=== PATIENT | female | born 1970 | race Caucasian/White ===

== ENCOUNTER 2016-05-29 12:33 | Emergency (ER) | payer MEDICARE ==
[2016-01-02 07:18] VITALS: BMI 45.4
[~2016-05-29 12:33] MED LIST: ALLOPURINOL TAB 300; BACTRIM DS TABL1 TAB PO; BUPROPION HCL100 M1 PO; CARTIA XT240 MG PO; GLUCOPHAGE1000 MG PO; HYDROCODONE-APA1 TAB PO; KLONOPIN1 MG PO; KLOR-CON M2020 MEQ PO; LASIX80 MG PO; LEVEMIR; NOVOLOG; PHENERGAN25 M1; ULTRAM50 MG PO; ZYLOPRIM300 MG PO
[2016-05-29 13:35] LABS: BASOPHILS 0.2 % (0.0-2.0); HEMATOCRIT 32.2 % (36.0-48.0); HEMOGLOBIN 10.2 g/dL (12-16); IMMATURE GRANULOCYTES 0.6 % (0-5); LYMPHOCYTES 22.2 % (15-50); MCH 34.6 pg (26.0-34.0); MCHC 31.7 g/dL (31.0-37.0); MCV 109.2 fL (80.0-100.0); MEAN PLATELET VOLUME 8.4 fL (7.4-10.4); MONOCYTES 4.8 % (2-11); NEUTROPHILS 70.2 % (40-80); RBC 2.95 10x6/uL (4.00-5.40); RDW 18.1 % (11.5-14.5); WBC 14.1 10x3/uL (4.8-10.8)
[2016-05-29 13:41] LABS: PLATELET COUNT 192 10x3/uL (130-400)
[2016-05-29 13:50] LABS: APTT 26.9 SECONDS (22.8-39.4); INR 0.98 (0.85-1.17); PROTIME 12.8 SECONDS (11.6-15.0)
[2016-05-29 13:56] LABS: ALBUMIN 3.9 g/dL (3.4-5.0); ANION GAP 13.6 mmol/L (8-16); BILIRUBIN - TOTAL 0.53 mg/dL (0.2-1.3); CARBON DIOXIDE 30.4 mmol/L (21.0-32.0); CREATININE - SERUM 5.1 mg/dL (0.6-1.3); PROTEIN - SERUM 7.8 g/dL (6.4-8.2)
== END 2016-05-29 16:02 | disposition home or self-care (01) ==
LOC: D.ER 12:33
PROVIDERS: Emergency Medicine
DX: K62.5 Hemorrhage of anus and rectum (principal); J44.9 Chronic obstructive pulmonary disease, unspecified; E11.9 Type 2 diabetes mellitus without complications; Z79.4 Long term (current) use of insulin; N18.9 Chronic kidney disease, unspecified; D64.9 Anemia, unspecified; E87.6 Hypokalemia

== ENCOUNTER 2016-06-01 21:22 | Inpatient (IN) | payer MEDICARE ==
[~2016-06-01] VITALS: Ht 167.6 cm; Wt 123.7 kg
--- NOTE | 2016-06-01 23:37 | NUR ---
PT ARRIVED VIA EMS AWAKE, ALERT, ORIENTED, TACHYPNEIC, DYSPNEIC, HAS C-PAP FROM HOME WITH HER AND IS WEARING IT AT THIS TIME. PT DENIES ANY ACUTE NEEDS AT THIS TIME. SPOKE WITH LOW VARGAS LITIGATION SERVICES MANAGER FOR RENAL. SHE ORDERED CMP, CBC, U/A, CARDIAC ENZYMES R/T INCREASED TROP FROM [facility] TO [facility], AND BLOOD CXL X 2. PT DID RECEIVE 1 GM OF ROCEPHIN FROM [facility] IN [place] BEFORE BEING TRANSFERRED TO HERE, AND ALSO ZOFRAN FOR INTERMITTENT NAUSEA. WILL RESTART PT'S S/S, PLACE TELEMETRY, AND MONITOR CLOSELY.
[2016-06-01] MEDS ORDERED: AMBIEN5 MG PO (23:54)
[2016-06-01] MEDS ORDERED: RENVELA800 MG PO (23:55)
[2016-06-02 00:58] LABS: CKMB 0.3 U/L (0.0-3.6); CREATINE KINASE 32 UL (21-215)
[2016-06-02 01:05] LABS: TROPONIN-I 0.084 ng/mL (0.000-0.060)
[2016-06-02 01:19] VITALS: BP 119/64; BMI 46.2
--- NOTE | 2016-06-02 01:34 | NUR ---
PT REFUSES SCD'S
--- NOTE | 2016-06-02 03:54 | NUR ---
ECG COMPLETE AND IN FRONT OF CHART
[2016-06-02 04:00] VITALS: BP 125/86; BP 99/45
--- NOTE | 2016-06-02 04:16 | NUR ---
PT C/O INCREASED CP, CHEST PRESSURE, STILL DYSPNEIC AND TACHYPNEIC. I SPOKE WITH LOW VARGAS WEED CONTROL INSPECTOR FOR RENAL WHO ORDERED UPDRAFTS Q 4 HOURS PRN, MORPHINE 2MG IVP Q 2 HOURS PRN CHEST PAIN, NITRO 0.4 SL X 3 OVER 15 MINUITES, AND RESTARTED PTS NORCO 10/325 Q 4 HOURS PRN PAIN. NITRO 0.4MG SL ADMINISTERED X 1, BUT BEFORE TAKING, PT STATES THEY HAVE NEVER HELPED HER AND THAT SHE HAD TO TAKE TWO OF THEM DURING DIALYSIS YESTERDAY. MORPHINE ADMINISTERED ORDERED, AND PT STATES THE CHEST PAIN IS EASING UP MINIMALLY. PT HAS REFUSED ANOTHER DOSE OF NITRO. WILL CONTINUE TO MONITOR CLOSELY.
--- NOTE | 2016-06-02 06:43 | NUR ---
PT LYING IN BED, EYES CLOSED, C-PAP ON, EASILY ROUSABLE TO VERBAL STIMULI. PT STILL IN GREAT DISCOMFORT WITH CHEST PAIN. DR. RUBIO IN ROOM WITH HER NOW. CONTINUE TO MONITOR.
[2016-06-02 07:10] LABS: ALKALINE PHOSPHATASE 59 U/L (46-116); ALT (SGPT) 15 U/L (10-68); CALCIUM 9.2 mg/dL (8.5-10.1); CARBON DIOXIDE 25.8 mmol/L (21.0-32.0); CHLORIDE - SERUM 94 mmol/L (98-107); CREATINE KINASE 29 UL (21-215); CREATININE - SERUM 5.4 mg/dL (0.6-1.3); POTASSIUM - SERUM 3.8 mmol/L (3.5-5.1); PROTEIN - SERUM 7.3 g/dL (6.4-8.2); SODIUM 134 mmol/L (136-145); UREA NITROGEN 33 mg/dL (7-18); eGFR NON AFRICAN AMERICAN 9 mL/min (90-120)
[2016-06-02 07:15] LABS: CALC OSMOLALITY 279 mosm/kg (275-300); GLUCOSE 192 mg/dL (74-106); HEMOGLOBIN 9.1 g/dL (12-16); MCH 34.1 pg (26.0-34.0); MCHC 31.4 g/dL (31.0-37.0); MCV 108.6 fL (80.0-100.0); MEAN PLATELET VOLUME 9.1 fL (7.4-10.4); PLATELET COUNT 200 10x3/uL (130-400); RBC 2.67 10x6/uL (4.00-5.40); RDW 17.8 % (11.5-14.5); TROPONIN-I 0.091 ng/mL (0.000-0.060); WBC 35.1 10x3/uL (4.8-10.8)
[2016-06-02 07:48] VITALS: BP 117/65
[2016-06-02 08:29] LABS: LYMPHOCYTES 6 % (15-50); MONOCYTES 5 % (2-11); NEUTROPHILS 82 % (40-80)
[2016-06-02 08:30] LABS: PLATELET ESTIMATE NORMAL
[2016-06-02 11:35] VITALS: BP 118/58
--- NOTE | 2016-06-02 13:08 | NUR ---
INTRODUCED SELF TO PT, PAIN MEDICATION GIVEN, PT STATES PAIN AT A 8, LOCATED IN CHEST, PT TOLERATED WELL, WILL CONTINUE TO MONITOR, CALL LIGHT WITHIN REACH.
[2016-06-02 13:25] VITALS: Ht 167.6 cm; Wt 123.7 kg
[2016-06-02 13:54] LABS: CKMB 0.3 U/L (0.0-3.6); CREATINE KINASE 20 UL (21-215); TROPONIN-I 0.055 ng/mL (0.000-0.060)
--- NOTE | 2016-06-02 14:14 | NUR ---
PT RESTING QUIETLY, RESPIRATIONS EVEN, BED IN LOW POSITION, SIDE RAILS UP X'S 2, CALL LIGHT WITHIN REACH, WILL CONTINUE TO MONITOR.
--- NOTE | 2016-06-02 15:00 | NUR ---
PT STATES DOES NOT ANY PHONE CALLS TO ROOM, CALLED LAND INSPECTOR, WILL CONTINUE TO MONITOR. CALL LIGHT WITHIN REACH.
--- NOTE | 2016-06-02 15:05 | NUR ---
ASSISTED PT TO BATHROOM AND BACK TO BED WITH MINIMAL ASSISTANCE, PT COMPLAINED OF PAIN IN HER FEET AND CHEST AREA. WILL CONTINUE TO MONITOR, CALL LIGHT WITHIN REACH.
[2016-06-02 16:14] VITALS: BP 101/51
--- NOTE | 2016-06-02 16:41 | NUR ---
Patient Name: KATINA BHAKTA Admission Status: Elective Accout number: [id number] Admission Date: 06-01-2016 : 1970 Admission Diagnosis:CHEST PAIN, UNSPECIFIED Attending: SALEEM Current LOS: 1 Anticipated DC Date: Planned Disposition: Home Primary Insurance: MEDICARE A & B Discharge Planning Comments: * Is the patient Alert and Oriented? Yes 0 * How many steps to enter\exit or inside your home? NONE 0 * PCP RAJINDER CHAMPION 0 * Pharmacy [facility] 0 * Preadmission Environment Home Alone 0 * ADLs Independent 0 * Equipment BIPAP Glucometer Oxygen 0 * Other Equipment HOME AND PORTABLE OXYGEN [facility] - MEDICAL EQUIPMENT PROVIDER PREFERENCE 0 * List name and contact numbers for known caregivers / representatives who currently or will assist patient after discharge: JOHNNY BHAKTA, DAUGHTER, JOYCE COCHRAN, MOTHER, 0 * Community resources currently utilized Other 0 * Please name any agencies selected above. OUTPATIENT DIALYSIS, [facility] T/T/SA, 1200 NOON, MOTHER DRIVES TO AND FROM DIALYSIS 0 * Additional services required to return to the preadmission environment? No 0 * Can the patient safely return to the preadmission environment? Yes 0 * Has this patient been hospitalized within the prior 30 days at any hospital? No 0 CM MET WITH PT IN ROOM TO DISCUSS DISCHARGE PLANNING AND NEEDS. PT REPORTS LIVING AT HOME INDEPENDENTLY AND ALONE. PT MOVED TO AN APARTMENT WITH NO STEPS. PT HAS BIPBP, GLUCOMETER, OXYGEN (HOME AND PORTABLE), PROVIDER IS [facility]. PT HAS NO OUTSIDE SERVICES ASSISTING IN THE HOME. CM DISCUSSED AVAILABILITY OF HOME HEALTH, REHAB SERVICES AND MEDICAL EQUIPMENT. PT HAD HOME HEALTH AFTER LAST DISCHARGE AND REPORTS NOT NEEDING IT NOW.PT DENIES DISCHARGE NEEDS, REPORTS HER FAMILY WILL PICK HER UP FOR DISCHARGE HOME. PT PLANS TO DISCHARGE HOME INDEPENDENTLY AND ALONE, DENIES DISCHARGE NEEDS AT THIS TIME. CM TO FOLLOW AND ASSIST NEEDED. Cook Manager: Quagn Son
--- NOTE | 2016-06-02 16:44 | NUR ---
ASSISTED PT TO BATHROOM AND BACK TO BED WITH MINIMAL ASSISTANCE. PT COMPLAINED OF PAIN IN FEET AND CHEST, PT STATES WANTS TO WAIT FOR PAIN MEDICATION UNTIL AFTER SHE EATS, WILL CONTINUE TO MONITOR, CALL LIGHT WITHIN REACH.
--- NOTE | 2016-06-02 18:07 | NUR ---
PAIN MEDICATION GIVEN, PT STATES PAIN AT 9 IN CHEST AND FEET, WILL CONTINUE TO MONITOR, CALL LIGHT WITHIN REACH.
[2016-06-03] VITALS: BP 124/67
--- NOTE | 2016-06-03 04:20 | NUR ---
NURSE ROUNDS 19:45 - PT LYING IN BED, AWAKE, ALERT, ORIENTED, STATES SHE IS STILL HAVING CONTINUOUS CHEST PAIN, HOME C-PAP ON. DENIES ANY ACUTE NEEDS. CONTINUE TO MONITOR CLOSELY.
[2016-06-03 05:25] LABS: BASOPHILS 0.1 % (0.0-2.0); EOSINOPHILS 0.1 % (0-7); HEMATOCRIT 25.7 % (36.0-48.0); HEMOGLOBIN 8.3 g/dL (12-16); IMMATURE GRANULOCYTES 0.7 % (0-5); LYMPHOCYTES 6.2 % (15-50); MCH 34.6 pg (26.0-34.0); MCHC 32.3 g/dL (31.0-37.0); MCV 107.1 fL (80.0-100.0); MEAN PLATELET VOLUME 9.1 fL (7.4-10.4); MONOCYTES 5.1 % (2-11); NEUTROPHILS 87.8 % (40-80); PLATELET COUNT 155 10x3/uL (130-400); RDW 17.5 % (11.5-14.5); WBC 29.4 10x3/uL (4.8-10.8)
[2016-06-03 05:41] LABS: ANION GAP 19.4 mmol/L (8-16); CALCIUM 8.6 mg/dL (8.5-10.1); CARBON DIOXIDE 24.6 mmol/L (21.0-32.0); PHOSPHOROUS 6.2 mg/dL (2.5-4.9)
[2016-06-03 05:49] LABS: CREATININE - SERUM 7.1 mg/dL (0.6-1.3)
--- NOTE | 2016-06-03 06:32 | NUR ---
PT AWAKE, ALERT, ORIENTED, RECEIVING RESP UPDRAFT VIA C-PAP AT THIS TIME. DENIES ANY NEEDS. CONTINUE TO MONITOR CLOSELY.
--- NOTE | 2016-06-03 07:30 | NUR ---
0700-WATCHING TV WITH HOME BIPAP ON. DENIES NEEDS AT PRESENT TIME DURING AM ROUNDS. RIGHT HAND SEEN WITH SECONDARY MEDICINE INFUSING. LEFT AVF SEEN WITH + BRUIT AND THRILL. ON HEART MONITOR SHOWING SR, HR 100. TO RECEIVCE 1 UNIT OF BLOOD TODAY WITH DIALYSIS. WILL CONTINUE TO MONITOR.
[2016-06-03 08:10] VITALS: BP 124/68
--- NOTE | 2016-06-03 10:21 | NUR ---
URINE SENT TO LAB ORDERED. THERE IS SOME BLOOD SEEN TO IT BUT PATIENT IS ON MENSES. PATIENT REFUSED TO HAVE HER RIGHT FOOT DRESSING LOOKED AT PER WOUND CARE NURSE UNTIL SHE TOOK SHOWER, SHE IS IN NO HURRY FOR THAT AT PRESENT TIME. WILL CONTINUE TO MONITOR. BIPAP STILL IN USE.
--- NOTE | 2016-06-03 11:36 | NUR ---
PATIENT PATHWAYS - PRN notified of patiens admission on 06/02. Patient is from [facility] on a TTS @ 10:15am schedule. Medial records uploaded nd forwarded to the patient's home unit for their records. DAY PRL
[2016-06-03 11:50] VITALS: BP 115/95
[2016-06-03 11:58] LABS: APPEARANCE CLOUDY (CLEAR); BACTERIA FEW /hpf (NONE SEEN); BILIRUBIN NEGATIVE (NEGATIVE); COLOR RED (YELLOW); EPITHELIAL CELLS 0-5 /hpf (0-5); GLUCOSE NEGATIVE (NEGATIVE); KETONE NEGATIVE (NEGATIVE); LEUKOCYTE ESTERASE 2+ (NEGATIVE); NITRITE NEGATIVE (NEGATIVE); PROTEIN 1+ mg/dL (NEGATIVE); RED CELLS - URINE >50 /hpf (0-5); SPECIFIC GRAVITY 1.015 (1.005-1.020); UROBILINOGEN NORMAL (NORMAL)
--- NOTE | 2016-06-03 14:37 | NUR ---
WOUND CARE CONSULT: PT REFUSED TO ALLOW WOUND CARE TO LOOK AT HER FEET / ASSESS WOUNDS. WILL CONTINUE FOLLOWING.
--- NOTE | 2016-06-03 14:48 | NUR ---
PATIENT IS ASKED AGAIN PER RIKI (PCT) WITH THE MOTHER IN THE ROOM, WHEN SHE WILL TAKE A SHOWER OR WASH UP SO THAT DRESSING ON RIGHT FOOT CANGE BE CHANGED. SHE REPLIED "WHEN MY MOM LEAVES".
--- NOTE | 2016-06-03 15:29 | NUR ---
PATIENT IS NOW IN SHOWER.
--- NOTE | 2016-06-03 16:29 | NUR ---
SARTHAK WITH WOUND CARE HERE TO SEE BILATERAL FEET. BOTH FEET ARE MOTTLED AND WOUND IS ADDRESSED PER SARTHAK.
--- NOTE | 2016-06-03 16:32 | NUR ---
WOUND CARE CONSULT: THIS IS A PATIENT OF DR. STRINGER AT THE [facility] WOUND [facility]INIC. SHE GOES WEEKLY. THERE IS A CHRONIC WOUND ON THE RIGHT MEDIAL FOOT MEASURING 2.5CM X 4CM (REFUSED TO ALLOW DEPTH TO BE CHECKED). SKIN SURROUNDING THE WOUND IS HARD TO THE TOUCH, CALLOUSED AND PEELING. BILATERAL FEET ARE MISSHAPED WITH CALLOUSES. CURRENT TREATMENT SHE IS RECEIVING IS SANTYL OINTMENT APPLIED TO WOUND BED, COVER WITH ADAPTIC, 4X4S, WRAPPING WITH CAST PADDING AND KERLIX. IT IS A DAILY DRESSING CHANGE OF WHICH SHE DOES FOR HERSELF. RECOMMEND CONTINUING THIS TREATMENT. WOUND CARE WILL CONTINUE TO MONITOR.
--- NOTE | 2016-06-03 18:24 | NUR ---
DIALYSIS HERE AT BEDSIDE.
--- NOTE | 2016-06-03 21:25 | NUR ---
CURRENTLY DIALYSIS AT BEDSIDE. WEARING BIPAP.
[2016-06-04] VITALS: BP 114/62
--- NOTE | 2016-06-04 02:09 | NUR ---
LYING IN BED WITH EYES CLOSED, CALL LIGHT IN REACH. WILL CONTINUE WITH PLAN OF CARE.
[2016-06-04 04:00] VITALS: BP 116/63
[2016-06-04 05:23] LABS: BASOPHILS 0.1 % (0.0-2.0); EOSINOPHILS 0.2 % (0-7); HEMOGLOBIN 8.5 g/dL (12-16); IMMATURE GRANULOCYTES 0.4 % (0-5); LYMPHOCYTES 7.4 % (15-50); MCH 33.2 pg (26.0-34.0); MCHC 31.5 g/dL (31.0-37.0); MCV 105.5 fL (80.0-100.0); MEAN PLATELET VOLUME 9.5 fL (7.4-10.4); MONOCYTES 7.8 % (2-11); NEUTROPHILS 84.1 % (40-80); PLATELET COUNT 146 10x3/uL (130-400); RBC 2.56 10x6/uL (4.00-5.40); RDW 18.6 % (11.5-14.5)
[2016-06-04 05:34] LABS: WBC 17.2 10x3/uL (4.8-10.8)
[2016-06-04 05:51] LABS: ANION GAP 15.8 mmol/L (8-16); CALCIUM 8.7 mg/dL (8.5-10.1); CARBON DIOXIDE 30.6 mmol/L (21.0-32.0); CREATININE - SERUM 5.1 mg/dL (0.6-1.3); PHOSPHOROUS 5.4 mg/dL (2.5-4.9); POTASSIUM - SERUM 3.4 mmol/L (3.5-5.1)
--- NOTE | 2016-06-04 07:52 | NUR ---
AM ROUNDING MADE, PATIENT IS ON BIPAP FROM HOME. ON HEART MONITOR SHOWING SR, HR 100. NS INFUSING AT 10 CC/HR TO RIGHT HAND. DRESSING TO RIGHT FOOT IS CLEAN AND DRY, WILL CHANGE TODAY, 3-4+ EDEMA. LEFT KNOT STILL TO INNER LEFT FOOT. LEFT AVF WITH + BRUIT AND THRILL. WILL CONTINUE TO MONITOR.
[2016-06-04 08:06] VITALS: BP 89/48
[2016-06-04 12:00] VITALS: BP 119/65
--- NOTE | 2016-06-04 12:38 | NUR ---
IV SITE TO RIGHT HAND CHANGED THERE WAS SOME BLOOD ON IT. TOLERATED WELL.
--- NOTE | 2016-06-04 13:18 | NUR ---
Nutrition Follow Up: Pt was asleep at the time of RD visit. Interview deferred at this time. Chart reviewed. Pt is eating 29% meal avg on a Renal ADA diet. Noted pt with wounds to feet. Labs noted - K+ low, Glucose/Phos elevated. Meds noted including Levemir, Humalog. Pt with poor po intake at this time. Will continue to provide selective menus and honor food preferences within diet ordered. RD following.
--- NOTE | 2016-06-04 14:14 | NUR ---
PATIENT ASSISTED TO RESTROOM PER TECH, COMPLATINTS OF IV LEAKING. WILL ATTEMPT RESITING.
--- NOTE | 2016-06-04 14:43 | NUR ---
IV RE-SITED TO RIGHT FA WITH 22 G.
--- NOTE | 2016-06-04 15:32 | NUR ---
PATIENT IS READY TO HAVE DRESSING TO RIGHT FOOT CHANGED. STUDENT NURSE AND INSTRUCTOR THERE TO DO IT.
[2016-06-04 16:00] VITALS: BP 109/52
--- NOTE | 2016-06-04 20:03 | NUR ---
PT RESTING IN BED WATCHING TV. ALERT ORIENTED CONVERSANT. DENIES NEEDS. NO ACUTE DISTRESS NOTED.
[2016-06-04 20:51] VITALS: BP 116/51
--- NOTE | 2016-06-04 21:55 | NUR ---
AID STATING THAT PT REQUESTING IV PAIN MEDICATION. INFORMED AID THAT PT HAD BEEN GIVEN NORCO AT APPROX 2100. AID TO INFORM PT.
--- NOTE | 2016-06-04 22:30 | NUR ---
ENTERED PT ROOM TO ADMINISTER IV BUPRONEX. PT SLEEPING. MEDICATION HELD
[2016-06-05 00:54] VITALS: BP 119/61
--- NOTE | 2016-06-05 01:28 | NUR ---
PT NOW AWAKE AND UPSET THAT SHE HASNT RECEIVED BUPRONEX AND THAT SHE HASNT SEEN NURSING STAFF SINCE 2099.
--- NOTE | 2016-06-05 01:34 | NUR ---
ADMINISTERED BUPRONEX 0.2 IV TO PT. INFORMED PT OF HOUSE SUPERVISORS PHONE NUMBER AND INFORMED PT WHEN SHE REQUEST PAIN MEDICATION THAT SHE PROBABLY SHOULDNT BE ASLEEP WHEN SOMEONE BRINGS IT TO BE ADMINISTERED.
[2016-06-05 04:03] VITALS: BP 109/68
[2016-06-05 05:20] LABS: BASOPHILS 0.1 % (0.0-2.0); EOSINOPHILS 0.5 % (0-7); HEMOGLOBIN 8.2 g/dL (12-16); IMMATURE GRANULOCYTES 0.5 % (0-5); LYMPHOCYTES 8.6 % (15-50); MCH 33.1 pg (26.0-34.0); MCHC 31.5 g/dL (31.0-37.0); MCV 104.8 fL (80.0-100.0); MEAN PLATELET VOLUME 9.2 fL (7.4-10.4); MONOCYTES 9.3 % (2-11); PLATELET COUNT 175 10x3/uL (130-400); RBC 2.48 10x6/uL (4.00-5.40); RDW 18.4 % (11.5-14.5); WBC 15.3 10x3/uL (4.8-10.8)
[2016-06-05 05:45] LABS: % SATURATION 28 % (15-55); IRON 46 ug/dl (35-150); TOTAL IRON BIND CAPACITY 159 ug/dl (260-445); UNSAT IRON BIND CAPACITY 113 ug/dl (150-375)
[2016-06-05 06:21] LABS: ANION GAP 18.9 mmol/L (8-16); CALCIUM 8.6 mg/dL (8.5-10.1); CARBON DIOXIDE 26.2 mmol/L (21.0-32.0); CREATININE - SERUM 6.5 mg/dL (0.6-1.3); POTASSIUM - SERUM 3.1 mmol/L (3.5-5.1); VANCOMYCIN - RANDOM 8.7 ug/mL (10.0-20.0)
--- NOTE | 2016-06-05 07:10 | NUR ---
RECEIVED REPORT. ASSUMED CARE OF PATIENT. CALL LIGHT WITHIN REACH. PATIENT SITTING UP IN BED CONSUMING AM MEAL. BIPAP PATENT. CALL LIGHT WITHIN REACH. PATIENT QUESTIONING ABOUT HER PAIN MEDICATION. PAIN MEDICATIONS EXPLAINED.RESP EVEN AND UNLABORED. NO DISTRESS.
[2016-06-05 07:35] VITALS: BP 115/61
--- NOTE | 2016-06-05 09:45 | NUR ---
911 EMERGENCY DISPATCHER AT BEDSIDE AT THIS TIME TO PROVIDE PATIENT WITH DIALYSIS. NO DISTRESS. CALL LIGHT WITHIN REACH.
[2016-06-05 11:19] VITALS: BP 130/72
--- NOTE | 2016-06-05 11:28 | NUR ---
FSBS 127. NO INSULIN PER SLIDING SCALE AT THIS TIME.
--- NOTE | 2016-06-05 13:09 | NUR ---
PATIENTS NOON MEDS LATE TO BE ADMINISTERED DUE TO PATIENT STILL RECEIVING DIALYSIS AT BEDSIDE.
[2016-06-05 15:09] VITALS: BP 119/62
--- NOTE | 2016-06-05 16:30 | NUR ---
RESTING IN BED WITH EYES OPEN, ATTENTION TOWARD TELEVISION. CALL LIGHT WITHIN REACH. DENIES NEEDS AT THIS TIME. NO DISTRESS.
--- NOTE | 2016-06-05 17:47 | NUR ---
FSBS 162. 2 UNITS HUMALOG ADMINISTERED PER SLIDING SCALE AT THIS TIME.
--- NOTE | 2016-06-05 19:10 | NUR ---
RECEIVED REPORT, KAYLI-LEMUEL-ELIZABET, HAS HOME BI-PAP USES PRN, A&O, UP AB PETER, BLOODSUGARS Q6, RESERVED L ARM, [id number], BED IS LOW, SRX2, CALL LIGHT IN REACH, WILL CONTINUE TO MONITOR
[2016-06-05 21:17] VITALS: BP 113/54
--- NOTE | 2016-06-06 00:31 | NUR ---
PT RESTING WITH EYES CLOSED. WITH HOME CPAP IN USE. RESP EVEN AND REGULAR. SR UP X2, CALL LIGHT WITHIN REACH.
[2016-06-06 02:01] VITALS: BP 110/61
[2016-06-06 04:25] VITALS: BP 111/64
[2016-06-06 05:09] LABS: BASOPHILS 0.1 % (0.0-2.0); EOSINOPHILS 0.8 % (0-7); HEMATOCRIT 26.8 % (36.0-48.0); HEMOGLOBIN 8.5 g/dL (12-16); IMMATURE GRANULOCYTES 0.6 % (0-5); LYMPHOCYTES 11.6 % (15-50); MCH 33.7 pg (26.0-34.0); MCHC 31.7 g/dL (31.0-37.0); MCV 106.3 fL (80.0-100.0); MEAN PLATELET VOLUME 9.2 fL (7.4-10.4); MONOCYTES 9.2 % (2-11); NEUTROPHILS 77.7 % (40-80); PLATELET COUNT 184 10x3/uL (130-400); RBC 2.52 10x6/uL (4.00-5.40); WBC 15.6 10x3/uL (4.8-10.8)
[2016-06-06 05:29] LABS: ANION GAP 15.4 mmol/L (8-16); CALCIUM 8.5 mg/dL (8.5-10.1); CARBON DIOXIDE 28.8 mmol/L (21.0-32.0); CREATININE - SERUM 5.1 mg/dL (0.6-1.3); POTASSIUM - SERUM 3.2 mmol/L (3.5-5.1)
[2016-06-06 07:28] VITALS: BP 113/60
[2016-06-06 11:57] VITALS: BP 120/63
[2016-06-06 15:10] VITALS: BP 120/62
--- NOTE | 2016-06-06 18:38 | NUR ---
ALERT AND ORIENTED X4. CONTINUE PAIN MANAGEMENT FOR CHRONIC PAIN. NO CHANGE. CONTINUE PLAN OF CARE AND SAFETY PRECAUTIONS. PREPAIR SHIFT CHANGE REPORT.
[2016-06-06 20:00] VITALS: BP 113/68
--- NOTE | 2016-06-06 23:20 | NUR ---
NURSE ROUNDS 21:00 - PT SITTING UP IN BED, AWAKE, ALERT, ORIENTED, C/O CHEST AND GENERALIZED PAIN. I DID GIVE PTS LEVEMIR AND A BEDTIME SNACK. PT DENIES ANY OTHER NEEDS. CONTINUE TO MONITOR CLOSELY.
[2016-06-07] VITALS: BP 130/76
--- NOTE | 2016-06-07 00:30 | NUR ---
PTS FSBS WAS 147. I GAVE 2 PACKS OF JAMI CRACKERS TO PT FOR A SNACK SO HER GLUCOSE WOULD NOT BOTTOM OUT DURING HER SLEEP.
--- NOTE | 2016-06-07 03:58 | NUR ---
PT CURRENTLY LYING IN BED, EYES CLOSED, C-PAP ON WITH O2, RESPIRATIONS EVEN AND UNLABORED. CONTINUE TO MONITOR CLOSELY.
[2016-06-07 04:00] VITALS: BP 142/64
[2016-06-07 05:08] LABS: BASOPHILS 0.2 % (0.0-2.0); EOSINOPHILS 1.8 % (0-7); HEMATOCRIT 27.7 % (36.0-48.0); HEMOGLOBIN 8.6 g/dL (12-16); IMMATURE GRANULOCYTES 1.5 % (0-5); LYMPHOCYTES 10.6 % (15-50); MCH 33.2 pg (26.0-34.0); MCV 106.9 fL (80.0-100.0); MEAN PLATELET VOLUME 8.9 fL (7.4-10.4); MONOCYTES 9.4 % (2-11); NEUTROPHILS 76.5 % (40-80); RBC 2.59 10x6/uL (4.00-5.40); RDW 18.1 % (11.5-14.5); WBC 16.8 10x3/uL (4.8-10.8)
[2016-06-07 05:24] LABS: PLATELET COUNT 230 10x3/uL (130-400)
[2016-06-07 05:28] LABS: ANION GAP 16.5 mmol/L (8-16); CARBON DIOXIDE 29.9 mmol/L (21.0-32.0); POTASSIUM - SERUM 3.4 mmol/L (3.5-5.1)
[2016-06-07 05:29] LABS: CREATININE - SERUM 6.6 mg/dL (0.6-1.3)
[2016-06-07 08:00] VITALS: BP 128/76
[2016-06-07 12:00] VITALS: BP 130/68
[2016-06-07 16:00] VITALS: BP 119/62
--- NOTE | 2016-06-07 18:52 | NUR ---
ALERT AND ORIENTED X4. URINE COLLECTED FOR CULTURING. NO CHANGE. PAIN MANAGEMENT CONTINUED. CONTINUE PLAN OF CARE AND SAFETY PRECAUTIONS. PREPARE SHIFT CHANGE REPORT.
[2016-06-07 22:18] VITALS: BP 144/76
[2016-06-08 01:42] VITALS: BP 136/80
--- NOTE | 2016-06-08 04:00 | NUR ---
JAIME ROUNDS 21:00 - PT LYING IN BED, EYES CLOSED, RESPIRATIONS EVEN AND UNLABORED, ON HER HOME C-PAP WITH O2. PT IS EASILY ROUSABLE TO VERBAL STIMULI. DENIES ANY ACUTE NEEDS. CONTINUE TO MONITOR CLOSELY.
[2016-06-08 05:48] VITALS: BP 173/102
[2016-06-08 07:45] VITALS: BP 141/74
--- NOTE | 2016-06-08 12:00 | NUR ---
ALERT AND ORIENTED X4. URINE SPECIMENT COLLECTED AND TAKEN TO LAB. CHRONIC SOB TREATED WITH OXYGEN THERAPY. PAIN MANAGEMENT FOR CHRONIC BACK PAIN. SINUS TACH 102bpm ON TELEMETRY. STUDENT NURSE IN ROOM. CONTINUE PLAN OF CARE. BED LOCKED AND LOW. CALL LIGHT IN REACH. TWO SIDERAILS UP.
[2016-06-08 12:20] VITALS: BP 137/64
[2016-06-08 15:43] VITALS: BP 126/61
--- NOTE | 2016-06-08 17:36 | NUR ---
ALERT AND ORIENTED X4. SITTING UP IN BED. RECIEVING DIALYSIS AT BEDSIDE. NO CHANGE. SINUS TACH 104bpm ON TELEMETRY. CONITNUE PLAN OF CARE AND SAFETY PRECAUTIONS.
[2016-06-08 20:25] VITALS: BP 134/95
[2016-06-09 01:14] VITALS: BP 160/105
[2016-06-09 04:00] VITALS: BP 132/63
--- NOTE | 2016-06-09 05:37 | NUR ---
NURSE ROUNDS 20:45 - PT AWAKE, ALERT, ORIENTED, DENIES ANY NEEDS. CONTINUE TO MONITOR CLOSELY.
--- NOTE | 2016-06-09 06:49 | NUR ---
PT LYING IN BED, EYES CLOSED, RESPIRATIONS EVEN, C-PAP ON, EASILY ROUSABLE TO VERBAL STIMULI. PT DENIES ANY NEEDS, REFUSES HER SCHEDULED NORCO, AND DID NOT WANT A SNACK THIS AM FOR HER FSBS OF 89. CONTINUE TO MONITOR CLOSELY.
[2016-06-09 07:50] VITALS: BP 152/76
--- NOTE | 2016-06-09 10:28 | NUR ---
Nutrition follow-up: Diet: ADA consistent CHO PO intake ~70% average of last 9 meals Labs reviewed FSBS under very good control +BM Wt: 287# RDN following.
--- NOTE | 2016-06-09 11:13 | NUR ---
ATTEMPTED TO RESITE IV IN RT UPPER ARM; PT JERKED AND NEEDLE CAME OUT. REFUSES TO LET ME STICK HER AGAIN.
[2016-06-09 11:59] VITALS: BP 128/61
--- NOTE | 2016-06-09 13:16 | EC ---
PATIENT:KATINA BHAKTA DATE OF SERVICE: 06/01/16 SEX: F MEDICAL RECORD: [id number] DATE OF : [birth year] LOCATION:D. D.211 AGE OF PATIENT: 45 ADMISSION DATE: 06/01/16 REFERRING PHYSICIAN: INTERPRETING PHYSICIAN: LOCO RUBIO M.D. ECHOCARDIOGRAM REPORT ECHO CHARGES 4 ECHO COMPLETE CLINICAL DIAGNOSIS: SOB ECHOCARDIOGRAPHIC MEASUREMENTS (adult normal given) AC root (d.<3.7cm) 3.2 LV Septum d (<1.2 cm> 2.0 Valve Excursion 2.3 LV Septum (systole) 2.5 Left Atria (s.<4.0cm> 4.0 LVPW d(<1.2cm) 1.7 RV (d.<2.3cm) 3.1 LVPW (sytole) 1.9 LV diastole(<5.6CM) 4.2 MV E-F(>70mm/sec) LV systole 2.3 LVOT Diameter 2.1 MV exc.(>10mm) Est.ejection fraction (50-75%) Pericardial Effusion N DOPPLER: LVIT A 133 E 146 LA RVSP 22.0 LVOT 153 AOP1/2T Asc. Ao 206 RVOT 111 RA PA 128 AV Gradient Peak 17.0 AV Mean 8.4 AV Area 2.9 MV Gradient Peak 9.0 MV Mean 3.9 MV Area COMMENTS: Hydrogen Plant Operator: Faustina JIMENEZOE Tester Equipment:Luz Elena Rubio TAPE# PACS DATE OF SERVICE: 06/02/2016 REFERRING PHYSICIAN: Eduardo Sepulveda MD. INDICATION: Dyspnea. DESCRIPTION: Left ventricle demonstrates left ventricular hypertrophy. No wall motion abnormalities are noted. Estimated ejection fraction is 60%. Mitral valve is structurally normal. There is no regurgitation or prolapse seen. Left atrium is mildly dilated. The aortic valve is trileaflet. There is no stenosis ECHOCARDIOGRAM REPORT [id number] KATINA BHAKTA or regurgitation seen. Leaflets are thickened consistent with aortic valve sclerosis. Right ventricle is mildly dilated. Tricuspid valve is structurally normal. There is no regurgitation seen. Right atrium is normal in size. There is no pericardial effusion seen. IMPRESSION: 1. Left ventricular hypertrophy with preserved ejection fraction of 60%. 2. Aortic valve sclerosis without stenosis. TRANSINT:[id number] Voice Confirmation ID: [id number] DOCUMENT ID: [id number] LOCO RUBIO M.D. at 1316 CC: [id number] DICTATION DATE: 06/02/16 1514 SWEEP MOLDER: 06/02/16 1608 ADM IN [address] [id number] [place] [address]
[2016-06-09 16:44] VITALS: BP 145/64
[2016-06-09 20:20] VITALS: BP 147/83
[2016-06-10 01:10] VITALS: BP 157/60
--- NOTE | 2016-06-10 03:20 | NUR ---
NURSE ROUNDS 19:30 - PT AWAKE, ALERT, ORIENTED, DENIES ANY NEEDS. CONTINUE TO MONITOR CLOSELY.
[2016-06-10 05:14] VITALS: BP 148/73
--- NOTE | 2016-06-10 07:30 | NUR ---
PATIENT IS AWAKE AND ALERT, WATCHING TV. NO NEEDS NOTED. CALL LIGHT IS WITHIN REACH. SHE HAS STUDENT NURSES ASSIGNED TO HER AND THEY WILL BE GIVING HER MEDICATIONS THIS MORNING.
[2016-06-10 08:37] VITALS: BP 147/77
[2016-06-10 11:53] LABS: BASOPHILS 0.3 % (0.0-2.0); HEMATOCRIT 26.9 % (36.0-48.0); HEMOGLOBIN 8.6 g/dL (12-16); IMMATURE GRANULOCYTES 5.8 % (0-5); LYMPHOCYTES 19.2 % (15-50); MCH 33.5 pg (26.0-34.0); MCV 104.7 fL (80.0-100.0); MEAN PLATELET VOLUME 8.6 fL (7.4-10.4); NEUTROPHILS 60.7 % (40-80); PLATELET COUNT 220 10x3/uL (130-400); RBC 2.57 10x6/uL (4.00-5.40); RDW 17.8 % (11.5-14.5); WBC 11.5 10x3/uL (4.8-10.8)
[2016-06-10 12:14] LABS: CALCIUM 8.5 mg/dL (8.5-10.1); CARBON DIOXIDE 24.6 mmol/L (21.0-32.0); CREATININE - SERUM 7.3 mg/dL (0.6-1.3); POTASSIUM - SERUM 3.6 mmol/L (3.5-5.1)
[2016-06-10 12:29] VITALS: BP 138/72
--- NOTE | 2016-06-10 13:15 | NUR ---
PATIENT HAS BEEN UP AMBULATING AROUND HER ROOM INDEPENDENTLY. CURRENTLY SHE IS SITTING UP ON HER BEDSIDE AND IS COMPLETING HER FOOT DRESSING. SHE STATES THAT SHE DOES THIS INDEPENDENTLY AND HAS FOR A LONG TIME NOW. INFORMED HER THAT WE WILL HAVE TO REDRESS THIS AGAIN LATER TODAY TO ASSESS. SHE VOICED UNDERSTANDING. MEDICATIONS TAKEN. SHE STATES THAT HER PAIN IS CONTROLLED.
[2016-06-10 16:42] VITALS: BP 134/79
--- NOTE | 2016-06-10 19:53 | NUR ---
BRASS ROLLER AT BEDSIDE TO OBTAIN VITALS, CALL LIGHT IN REACH. WILL CONTINUE WITH PLAN OF CARE.
[2016-06-10 20:00] VITALS: BP 128/64
[2016-06-11 02:01] VITALS: BP 131/66
[2016-06-11 08:00] VITALS: BP 163/92
--- NOTE | 2016-06-11 08:28 | NUR ---
0735-AM ROUNDING DONE, PATIENT IN CONTACT ISOLATION. ON 4L PER NC. ON HEART MONITOR SHOWING ST, HR 102. LEFT AVF WITH + BRUIT AND THRILL. WILL CONTINUE TO MONITOR.
[2016-06-11 10:17] LABS: HEPATITIS C ANTIBODY <0.1 (0.0-0.9)
[2016-06-11 12:00] VITALS: BP 114/58
--- NOTE | 2016-06-11 12:03 | NUR ---
WOUND CARE REASSESSMENT:CHRONIC WOUND ON RIGHT MEDIAL FOOT SURROUNDED BY HARD CALLOUSED/PEELING SKIN. AFTER REMOVING DRESSING AND CLEANSING WOUND A LARGE AMOUNT OF /DRY/HARD SKIN WAS REMOVED FROM AROUND WOUND. THE UNDERLYING SKIN WAS PINK AND INTACT. THE WOUND IS MEASURING SMALLER SINCE LAST ASSESSMENT: 2CM X 3.5CM X 0.5CM. WOUND BED IS PALE PINK WITH YELLOW. APPLIED SANTYL OINTMENT TO WOUND BED, COVERED WITH ADAPTIC AND 4X4S, CAST PADDING AND KERLIX. PT TOLERATED WELL. NO S/SX INFECTION NOTED. WILL CONTINUE TO MONITOR.
--- NOTE | 2016-06-11 12:06 | NUR ---
DRESSING TO RIGHT FOOT CHANGED PER FLORECITA DE LEÓN (WOUND CARE NURSE) AND MYSELF. TOLERATED WELL. STILL NPO.
--- NOTE | 2016-06-11 13:30 | NUR ---
PT IS ALERT. PLAN OF CARE WILL CONTINUE TO MONTIOR. NO OTHER NEEDS. WILL CONTINUE TO MONITOR.
--- NOTE | 2016-06-11 13:51 | NUR ---
WILL CONTINUE PLAN OF CARE. RECEIVED PT REPORT. NO OTHER NEEDS.
--- NOTE | 2016-06-11 14:10 | NUR ---
Nutrition Follow Up: Chart reviewed. Pt is eating 80% on a Diabetic diet, high protein, low Phos. Noted pt with wound to R foot. Meds and labs noted. +BM 06/09/16. Wt gain of 2# since admit - likely r/t fluid. Pt with good po intake at this time. Rec continue current diet per Renal. RD following.
[2016-06-11 18:42] LABS: PROTEIN - BODY FLUID 3.9 G/DL
--- NOTE | 2016-06-11 19:19 | NUR ---
INITIAL ROUNDS COMPLETED. PT DENIED ANY DISCOMFORT. WILL CONTINUE TO MONITOR.
[2016-06-11 19:26] LABS: LYMPH - BF 82 %; MACROPHAGES BF 11 %; NEUT - BF 7 %
[2016-06-11 20:34] VITALS: BP 148/76
--- NOTE | 2016-06-11 22:44 | NUR ---
ASSESSMENT COMPELTED AT 2009 HRS. VSS. SR PER CM HR 100. IV TO R HAND SL. LAVF WITH GOOD BRUIT AND THRILL. O2 4LNC. LUNGS DIMINISHED IN BASES BILAT. BRUISING NOTED TO BILAT ARMS. DRESSING TO R FOOT CLEAN, DRY AND INTACT. PALPABLE PEDAL PULSE. PM FSBS 143. PM MEDS GIVEN. PT CURRENTLY RESTING WITH EYES CLOSED. RESP EVEN AND REGULAR. SR UPX2, CALL LIGHT WITHIN REACH.
--- NOTE | 2016-06-12 00:33 | NUR ---
FSBS 93. NO COVERAGE NEEDED. SHERBERT GIVEN PER REQUEST. SCHEDULED NORCO GIVEN. WILL CONITNUE TO MONITOR.
[2016-06-12 01:07] VITALS: BP 162/76
--- NOTE | 2016-06-12 01:54 | NUR ---
PT RESTING WITH EYES CLOSED. RESP EVEN AND REGULAR. SR UP X2, CALL LIGHT WITHIN REACH.
--- NOTE | 2016-06-12 03:54 | NUR ---
PT RESTING WITH EYES CLOSED WITH HOME BIPAP IN USE. RESP EVEN AND REGULAR. SR UP X2, CALL LIGHT WITHIN REACH.
[2016-06-12 05:01] VITALS: BP 149/75
[2016-06-12 05:56] LABS: % SATURATION 28 % (15-55); IRON 46 ug/dl (35-150); TOTAL IRON BIND CAPACITY 164 ug/dl (260-445); UNSAT IRON BIND CAPACITY 118 ug/dl (150-375)
--- NOTE | 2016-06-12 06:44 | NUR ---
VSS THROUGHOUT NIGNHT. SR PER CM. PT STATED NORCO HELPED CONTROL R FOOT PAIN. NEEDS MET; WILL CONTINUE TO MONITOR.
[2016-06-12 07:00] VITALS: BP 143/77
--- NOTE | 2016-06-12 07:10 | NUR ---
RECEIVED REPORT. ASSUMED CARE OF PATIENT. CALL LIGHT WITHIN REACH. PATIENT AWAKE, ATTENTION TOWARDS TELEVISION. RESP EVEN AND UNLABORED. NO DISTRESS. DENIES NEEDS AT THIS TIME.
--- NOTE | 2016-06-12 09:52 | NUR ---
DIALYSIS REMAINS AT BEDSIDE AT THIS TIME. TOLERATING TREATMENT WELL.
[2016-06-12 10:38] LABS: BASOPHILS 0.3 % (0.0-2.0); EOSINOPHILS 2.1 % (0-7); HEMATOCRIT 27.7 % (36.0-48.0); HEMOGLOBIN 8.6 g/dL (12-16); IMMATURE GRANULOCYTES 2.9 % (0-5); LYMPHOCYTES 20.5 % (15-50); MCH 33.3 pg (26.0-34.0); MCV 107.4 fL (80.0-100.0); MEAN PLATELET VOLUME 8.8 fL (7.4-10.4); MONOCYTES 10.9 % (2-11); NEUTROPHILS 63.3 % (40-80); PLATELET COUNT 210 10x3/uL (130-400); RBC 2.58 10x6/uL (4.00-5.40); RDW 17.6 % (11.5-14.5); WBC 11.9 10x3/uL (4.8-10.8)
[2016-06-12 10:42] LABS: CALCIUM 7.9 mg/dL (8.5-10.1); CARBON DIOXIDE 27.7 mmol/L (21.0-32.0); CREATININE - SERUM 6.4 mg/dL (0.6-1.3)
[2016-06-12 10:43] LABS: POTASSIUM - SERUM 3.7 mmol/L (3.5-5.1)
--- NOTE | 2016-06-12 11:48 | NUR ---
FSBS 133. NO INSULIN COVERAGE REQUIRED PER SLIDING SCALE.
[2016-06-12 12:00] VITALS: BP 123/81
--- NOTE | 2016-06-12 12:45 | NUR ---
DIALYSIS COMPLETE AT THIS TIME. NO DISTRESS. CALL LIGHT WITHIN REACH.
--- NOTE | 2016-06-12 13:56 | NUR ---
MEDICATED FOR PAIN AT THIS TIME. NO DISTRESS.
[2016-06-12 16:00] VITALS: BP 121/62
--- NOTE | 2016-06-12 18:23 | NUR ---
FSBS 112. NO INSULIN COVERAGE PER SLIDING SCALE.
--- NOTE | 2016-06-12 19:39 | NUR ---
ASSESSMENT COMPLETE, A&O, AWAKE IN BED, WATCHING TV. RESPERATIONS EVEN ON O2 AT 4 LITER VIA NC. IV TO RIGHT HAND SL. SITE CLEAN AND DRY. SMALL DRSG TO RIGHT FLANK FROM DERRICKIS C/D/I. PT DENIES PAIN OR NEEDS, BED LOW, CL IN REACH, WILL CONT TO MONITOR.
[2016-06-12 20:15] VITALS: BP 122/61
--- NOTE | 2016-06-12 22:08 | NUR ---
HS MEDS GIVEN WITH FRESH ICE WATER. BS 125, NO COVERAGE NEEDED PER S/S, PT ALSO REFUSED LEVIMER INSULIN, STATES THAT SHE DOESNT WANT TO GET TOO LOW THROUGH OUT THE NIGHT. OFFERED PT AMBIEN TO ASSIST WITH REST, PT DECLINED STATING THAT SHE DOESNT FEEL LIKE SHE NEEDS IT TO SLEEP. TURNED OFF LIGHTS AT PT REQUEST, BED LOW, CL IN REACH, WILL CONT TO MONITOR.
[2016-06-13 00:05] VITALS: BP 121/54
--- NOTE | 2016-06-13 00:41 | NUR ---
RESTING WITH EYES CLOSED, RESPERATIONS EVEN, NO S/S DISTRESS NOTED.
[2016-06-13 04:12] VITALS: BP 120/68
--- NOTE | 2016-06-13 04:47 | NUR ---
NOTIFIED BY [facility] [employer] [facility] THAT PT IS REFUSING FOR AM LABS TO BE DRAWN, STATES THAT DR RUBIO SAID THAT SHE DOESNT HAVE TO HAVE ANY MORE LAB WORK DONE.
--- NOTE | 2016-06-13 05:46 | NUR ---
SECOND INTERNAL COMBUSTION ENGINE ASSEMBLER AT BED SIDE, PT ALLOWED HER TO DRAW AM LABS.
[2016-06-13 05:58] LABS: BASOPHILS 0.3 % (0.0-2.0); EOSINOPHILS 1.9 % (0-7); HEMATOCRIT 28.9 % (36.0-48.0); HEMOGLOBIN 8.7 g/dL (12-16); IMMATURE GRANULOCYTES 2.7 % (0-5); LYMPHOCYTES 17.5 % (15-50); MCH 32.8 pg (26.0-34.0); MCHC 30.1 g/dL (31.0-37.0); MCV 109.1 fL (80.0-100.0); MEAN PLATELET VOLUME 8.7 fL (7.4-10.4); MONOCYTES 9.1 % (2-11); NEUTROPHILS 68.5 % (40-80); RBC 2.65 10x6/uL (4.00-5.40); WBC 11.9 10x3/uL (4.8-10.8)
[2016-06-13 06:00] LABS: PLATELET COUNT 155 10x3/uL (130-400)
--- NOTE | 2016-06-13 06:06 | NUR ---
RESTING IN BED WITH NO DISTRESS. CPOC.
[2016-06-13 06:21] LABS: ANION GAP 18.4 mmol/L (8-16); CALCIUM 8.4 mg/dL (8.5-10.1); PHOSPHOROUS 7.3 mg/dL (2.5-4.9); POTASSIUM - SERUM 3.4 mmol/L (3.5-5.1)
--- NOTE | 2016-06-13 07:10 | NUR ---
RECEIVED REPORT. ASSUMED CARE OF PATIENT. CALL LIGHT WITHIN REACH. RESTING WITH EYES CLOSED. CPAP PATENT TO PATIENT AT THIS TIME. RESP EVEN AND UNLABORED. NO DISTRESS.
[2016-06-13 09:00] VITALS: BP 120/54
--- NOTE | 2016-06-13 10:58 | NUR ---
PATIENT SWITCHED TO ROOM 2111 BECAUSE PATIENT WANTED A BED THAT WOULD WEIGH HER INSTEAD OF BEING DISTURBED IN EARLY AM HOURS TO GET OOB TO BE WEIGHTED. PATIENT SETTLED INTO NEW ROOM WITH ALL PERSONAL BELONGINGS AT THIS TIME.
--- NOTE | 2016-06-13 11:25 | NUR ---
FSBS 104. NO INSULIN ADMINISTERED PER SLIDING SCALE.
[2016-06-13 12:00] VITALS: BP 139/66
[2016-06-13 16:00] VITALS: BP 116/68
[2016-06-13 16:08] LABS: AEROBE ID Final report (())
--- NOTE | 2016-06-13 18:19 | NUR ---
FSBS 117. NO INSULIN ADMINIATERED PER SLIDING SCALE. NO DISTRESS.
--- NOTE | 2016-06-13 18:37 | NUR ---
WOUND CARE COMPLETE TO RIGHT MEDIAL FOOT AT THIS TIME. TOLERATED DRESSING CHANGE WELL. NO DISTRESS.
--- NOTE | 2016-06-13 19:31 | NUR ---
ASSESSMENT COMPELTE, A&O, DENIES PAIN OR NEEDS, BED LOW, CL IN REACH. WILL CONT TO MONITOR.
[2016-06-13 20:00] VITALS: BP 145/74
[2016-06-14 04:00] VITALS: BP 126/67
--- NOTE | 2016-06-14 04:54 | NUR ---
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 WILL CONTINUE WITH PLAN CARE
[2016-06-14 05:31] LABS: BASOPHILS 0.2 % (0.0-2.0); EOSINOPHILS 2.2 % (0-7); HEMATOCRIT 27.7 % (36.0-48.0); HEMOGLOBIN 8.3 g/dL (12-16); IMMATURE GRANULOCYTES 1.9 % (0-5); LYMPHOCYTES 19.9 % (15-50); MCH 32.4 pg (26.0-34.0); MCV 108.2 fL (80.0-100.0); MEAN PLATELET VOLUME 8.5 fL (7.4-10.4); MONOCYTES 8.9 % (2-11); NEUTROPHILS 66.9 % (40-80); PLATELET COUNT 175 10x3/uL (130-400); RBC 2.56 10x6/uL (4.00-5.40); RDW 17.6 % (11.5-14.5); WBC 12.4 10x3/uL (4.8-10.8)
[2016-06-14 05:50] LABS: ANION GAP 15.1 mmol/L (8-16); CALCIUM 8.6 mg/dL (8.5-10.1); CARBON DIOXIDE 27.3 mmol/L (21.0-32.0); POTASSIUM - SERUM 3.4 mmol/L (3.5-5.1)
[2016-06-14 05:52] LABS: CREATININE - SERUM 6.6 mg/dL (0.6-1.3)
[2016-06-14 08:16] VITALS: BP 131/74
[2016-06-14 11:37] VITALS: BP 116/75
--- NOTE | 2016-06-14 11:54 | NUR ---
Nutrition follow-up: Diet changed back to renal ADA due to elevated PO4; binders increased PO intake continues to be 75-100% of meals +BM Labs reviewed Wt: 275# PO intake continues to be good at this time RDN following.
[2016-06-14 12:12] LABS: FUNGUS STAIN Final report (())
--- NOTE | 2016-06-14 15:09 | NUR ---
Patient Name: KATINA BHAKTA Encounter No: [id number] : 1970 Primary Insurance: MEDICARE A & B Anticipated DC Date: Planned Disposition: Home DCP follow-up note: CM MET WITH PT IN ROOM TO DISCUSS DISCHARGE NEEDS AND PLANNING. CM DISCUSSED AVAILABILITY OF HOME HEALTH, REHAB SERVICES AND MEDICAL EQUIPMENT. PT DENIES DISCHARGE NEEDS REPORTING HAVING BEEN UP AND INDEPENDENT IN HER ROOM WITH NO ISSUES. FAMILY TO TRANSPORT HOME AT DISCHARGE. IMPORTANT MESSAGE FROM [employer] PROVIDED AND EXPLAINED. CM PROVIDED [employer] EDUCATION BOOKLET AND PT SIGNED [employer] ACKNOWLEDGEMENT FORM, COPY PLACED IN CHART. PT DENIES DISCHARGE NEEDS, PLANS TO DISCHARGE HOME WITH ASSISTANCE OF FAMILY. CM TO FOLLOW AND ASSIST NEEDED. Quang Son, CASE MANAGEMENT
[2016-06-14 15:53] VITALS: BP 128/62
[2016-06-14 20:00] VITALS: BP 116/56
[2016-06-15] VITALS: BP 121/66
--- NOTE | 2016-06-15 00:34 | NUR ---
RESTING WITH EYES CLOSED, RESPERATIONS EVEN, NO S/S DISTRESS NOTED.
--- NOTE | 2016-06-15 04:24 | NUR ---
PT LAYING IN BED NO DISTRESS OBSERVED CALL LIGHT IN REACH SRX2 BED LOW AND LOCKED WILL MONITOR
[2016-06-15 05:40] LABS: BASOPHILS 0.2 % (0.0-2.0); EOSINOPHILS 2.5 % (0-7); HEMATOCRIT 27.6 % (36.0-48.0); HEMOGLOBIN 8.5 g/dL (12-16); IMMATURE GRANULOCYTES 1.7 % (0-5); LYMPHOCYTES 19.1 % (15-50); MCH 32.7 pg (26.0-34.0); MCHC 30.8 g/dL (31.0-37.0); MEAN PLATELET VOLUME 8.5 fL (7.4-10.4); MONOCYTES 7.4 % (2-11); NEUTROPHILS 69.1 % (40-80); PLATELET COUNT 179 10x3/uL (130-400); RDW 17.6 % (11.5-14.5); WBC 12.6 10x3/uL (4.8-10.8)
[2016-06-15 05:58] LABS: CALCIUM 8.6 mg/dL (8.5-10.1); CARBON DIOXIDE 23.9 mmol/L (21.0-32.0); CREATININE - SERUM 7.9 mg/dL (0.6-1.3); POTASSIUM - SERUM 3.9 mmol/L (3.5-5.1)
[2016-06-15 05:59] LABS: PHOSPHOROUS 9.7 mg/dL (2.5-4.9)
[2016-06-15 06:16] LABS: MCV 106.2 fL (80.0-100.0)
[2016-06-15 07:46] VITALS: BP 113/62
--- NOTE | 2016-06-15 08:15 | NUR ---
PT RESTING IN BED WITH EYES OPEN CALL LIGHT IN REACH NO PROBLEMS WILL MONITER
--- NOTE | 2016-06-15 09:39 | NUR ---
RESTS IN ISOLATION ROOM. DIALYSIS STARTED AT BS. WILL CONT. PLAN OF CARE.
--- NOTE | 2016-06-15 09:45 | NUR ---
PT DIALYSIS STARTED BY DIALYSIS NURSE WILL MONITER
[2016-06-15 11:36] VITALS: BP 131/65
--- NOTE | 2016-06-15 13:30 | NUR ---
PT DIALYSIS FINISHED PT TOLERATED WELL WILL MONITER
[2016-06-15 15:18] VITALS: BP 125/60
[2016-06-15] MEDS ORDERED: MUCINEX600 MG PO (15:54)
--- NOTE | 2016-06-15 16:53 | NUR ---
PT RESTING IN BED WITH EYES OPEN CALL LIGHT IN REACH NO PROBLEMS WILL MONITER
--- NOTE | 2016-06-15 19:55 | NUR ---
Received patient resting in bed with oxygen @2L/min via nasal cannula. PIV in right hand, no signs of infection or infiltration. Denies pain at this time. Sitting up in bed watching TV. Alert and oriented x 4.
[2016-06-15 20:02] VITALS: BP 116/59
--- NOTE | 2016-06-15 22:40 | NUR ---
BG check at HS = 198, due to emergency incident on unit was unable to get staff to verify dose of insulin until now. Given HS dose of 10 Units of levemir at this time.
--- NOTE | 2016-06-16 00:01 | NUR ---
Obtained BG check as per orders, BG = 120. Patient upset and claims "No one else has been waking me up to do this." Ordered BG check Q6H. Offered to leave message for MD to have order changed to TID and HS but claims she is being discharged today so, "it wouldn't matter anyway." Patient wearing BIPAP.
[2016-06-16 01:39] VITALS: BP 116/60
--- NOTE | 2016-06-16 04:19 | NUR ---
Reviewed telemetry readings with Ultrasound Technol, has been in SR with HR in the 80s and 90s/min mostly.
[2016-06-16 04:37] VITALS: BP 96/52
[2016-06-16 05:51] LABS: BASOPHILS 0.4 % (0.0-2.0); EOSINOPHILS 2.4 % (0-7); HEMATOCRIT 25.7 % (36.0-48.0); HEMOGLOBIN 7.9 g/dL (12-16); IMMATURE GRANULOCYTES 1.3 % (0-5); LYMPHOCYTES 17.2 % (15-50); MCH 32.6 pg (26.0-34.0); MCHC 30.7 g/dL (31.0-37.0); MCV 106.2 fL (80.0-100.0); MEAN PLATELET VOLUME 8.4 fL (7.4-10.4); MONOCYTES 10.5 % (2-11); NEUTROPHILS 68.2 % (40-80); PLATELET COUNT 160 10x3/uL (130-400); RBC 2.42 10x6/uL (4.00-5.40); RDW 17.2 % (11.5-14.5); WBC 10.4 10x3/uL (4.8-10.8)
[2016-06-16 06:05] LABS: ANION GAP 14.6 mmol/L (8-16); CALCIUM 8.9 mg/dL (8.5-10.1); CARBON DIOXIDE 28.2 mmol/L (21.0-32.0); POTASSIUM - SERUM 3.8 mmol/L (3.5-5.1)
[2016-06-16 06:14] LABS: CREATININE - SERUM 5.7 mg/dL (0.6-1.3); PHOSPHOROUS 6.6 mg/dL (2.5-4.9)
[2016-06-16 08:00] VITALS: BP 155/95
--- NOTE | 2016-06-16 09:44 | NUR ---
RESTS IN ISOLATION ROOM. CALL LIGHT IN REACH. WILL MONITOR NEEDS.
--- NOTE | 2016-06-16 11:00 | NUR ---
DR GARCIA CALLED WITH DISCHARGE ORDERS FOR THIS PATIENT.
[2016-06-16] MEDS ORDERED: PHENERGAN25 M1 PO (11:25)
[2016-06-16] MEDS ORDERED: LEVEMIR100 U/M1 SC (11:34)
[2016-06-16] MEDS ORDERED: RENVELA800 MG PO (11:40)
[2016-06-16 12:09] VITALS: BP 161/72
--- NOTE | 2016-06-16 12:30 | NUR ---
PATIENT GIVEN DISCHARGE INSTRUCTIONS. TELEMETRY REMOVED. IV REMOVED FROM RIGHT HAND.
--- NOTE | 2016-06-16 14:00 | NUR ---
PATIENTS MOTHER HERE TO TAKE PATIENT HOME. ASST OUT BY STAFF.
[2016-06-20 18:06] LABS: AEROBE ID Final report (())
[2016-07-13 07:21] LABS: FUNGUS MYCOLOGY CULTURE Final report (())
--- NOTE | 2016-07-25 12:58 | DS ---
PATIENT:KATINA BHAKTA :72 MEDICAL RECORD: [id number] DISCHARGE SUMMARY ADMISSION DATE: 06/01/16 DISCHARGE DATE: 06/16/16 The patient was admitted on June 01 for chest pain and fever of 101. The patient was an ESRD patient, on Tuesday, Tuesday, and Tuesday. She had a chest x-ray that reported pneumonia. Cardiac was consulted for elevated troponin and the patient with DM. She required blood sugar checks. Chest pain, most likely pleurisy. She has a left foot lesion, the x-ray was ordered, wound care. The patient was then on antibiotics while in hospital. The patient also with possible thrush. The patient with menses blood loss anemia. Again, the patient is type 2 diabetic with poor control. GI was consulted. Cardiology was consulted for the elevated enzymes, echo was done. ID was also consulted for an altered mental status on admission with fever and also ID was consulted for diabetic foot ulcer. The patient was discharged on ____, she was clinically better, had remained afebrile. She did have VRE that is noted from ID recommendations and was okay not to treat. She again required hemodialysis while in hospital. She did get 1 unit of PRBCs. The patient admitted for pneumonia, ESRD, diabetes type 2 with foot ulcer. The patient received dialysis, blood, ID consult, GI consult and cardiac consult. The patient was discharged home to follow up in her hemodialysis unit on her chronic days and also home on her current medication per chart. TRANSINT:[id number] Voice Confirmation ID: [id number] DOCUMENT ID: [id number] Dictated By: TERRELL RUSSELL I have interviewed/examined the above patient and agree with these documented findings. CARLOS RUBIO MD at 1435 at 1258 CC: [id number] DICTATION DATE: 07/23/16 1512 FLYER REPAIRER: 07/24/16 0400 DIS IN 06/16/16 [facility] [address] [place] [address]
== END 2016-06-16 15:07 | disposition home or self-care (01) | DRG 193 ==
LOC: D.M2 21:22
PROVIDERS: General Practice; ADMIT Internal Medicine Nephrology
PROC: 5A1D60Z (ICD-10-PCS; principal; 2016-06-03)
PROC: 0W993ZZ Drainage of Right Pleural Cavity, Percutaneous Approach (ICD-10-PCS; 2016-06-11)
DX: J18.9 Pneumonia, unspecified organism (principal); N18.6 End stage renal disease; I13.2 Hypertensive heart and chronic kidney disease with heart failure and with stage 5 chronic kidney disease, or end stage renal disease; I24.8 Other forms of acute ischemic heart disease; Z68.42 Body mass index [BMI] 45.0-49.9, adult; J90 Pleural effusion, not elsewhere classified; E11.40 Type 2 diabetes mellitus with diabetic neuropathy, unspecified; E11.22 Type 2 diabetes mellitus with diabetic chronic kidney disease; Z99.2 Dependence on renal dialysis; D63.1 Anemia in chronic kidney disease; G47.33 Obstructive sleep apnea (adult) (pediatric); E66.9 Obesity, unspecified; E83.39 Other disorders of phosphorus metabolism; N30.90 Cystitis, unspecified without hematuria; B37.9 Candidiasis, unspecified; B95.2 Enterococcus as the cause of diseases classified elsewhere; E11.621 Type 2 diabetes mellitus with foot ulcer; E87.6 Hypokalemia; Z86.73 Personal history of transient ischemic attack (TIA), and cerebral infarction without residual deficits; Z87.891 Personal history of nicotine dependence

== ENCOUNTER 2016-07-12 05:31 | Outpatient (CLI) | payer MEDICARE ==
[~2016-07-12] VITALS: Ht 167.6 cm; Wt 124.1 kg
[~2016-07-12 05:31] MED LIST changes: +AMBIEN5 MG PO; +LEVEMIR100 U/M1 SC; +MUCINEX600 MG PO; +PHENERGAN25 M1 PO; +RENVELA800 MG PO
[2016-07-12 06:50] LABS: BASOPHILS 0.3 % (0.0-2.0); EOSINOPHILS 2.8 % (0-7); HEMATOCRIT 22.6 % (36.0-48.0); IMMATURE GRANULOCYTES 2.3 % (0-5); LYMPHOCYTES 26.5 % (15-50); MCH 33.8 pg (26.0-34.0); MCHC 31.4 g/dL (31.0-37.0); MCV 107.6 fL (80.0-100.0); MEAN PLATELET VOLUME 8.5 fL (7.4-10.4); MONOCYTES 7.4 % (2-11); NEUTROPHILS 60.7 % (40-80); PLATELET COUNT 145 10x3/uL (130-400); RDW 18.2 % (11.5-14.5); WBC 10.7 10x3/uL (4.8-10.8)
[2016-07-12 06:51] LABS: HEMOGLOBIN 7.1 g/dL (12-16)
--- NOTE | 2016-07-12 06:55 | NUR ---
0654-critical hgb of 7.1 called to gabi rios rn. will wait for new order
[2016-07-12 07:00] LABS: ANION GAP 18.9 mmol/L (8-16); CALCIUM 9.7 mg/dL (8.5-10.1); CARBON DIOXIDE 25.4 mmol/L (21.0-32.0); CREATININE - SERUM 7.8 mg/dL (0.6-1.3); POTASSIUM - SERUM 3.3 mmol/L (3.5-5.1)
[2016-07-12 07:04] LABS: APTT 26.6 SECONDS (22.8-39.4); INR 0.95 (0.85-1.17); PROTIME 12.5 SECONDS (11.6-15.0)
[2016-07-12 07:17] VITALS: Ht 167.6 cm; Wt 124.1 kg
--- NOTE | 2016-07-12 09:28 | NUR ---
0900-RECD FROM INTERVENTIONAL RADIOLOGY. DENIES PAIN. RESP WITH EASE. IV PATENT. 0910-CBC CALLED TO DR WILKERSON OFFICE 0920-ORDERS RECD FOR BLOOD TRANSFUSION X 1 UNIT.
--- NOTE | 2016-07-12 10:03 | NUR ---
0955 PT SERVED RENAL DIET. Sukumar JOHNSTON R.N.
--- NOTE | 2016-07-12 21:03 | NUR ---
1515 IV DC'ED WITH CATH INTACT. PRESSURE TO SITE. PT DRESSING. Sukumar ColemanNKristen 1530 PT DRESSED. AWAKE & ALERT. GIVEN DISCAHRGE INSTRUCTIONS INCLUCING: MED REC., POST TRANSFUSION INSTRUCTIONS SHEET., & D/C INSTRUCTIONS FOR CT GUIDED BIOPSY. PT VOIDEC UNDERSTANDING. TO PRIVATE CAR PER WHEELCHAIR ON PORTABLE O2. HOME WITH MOTHER, JOYCE. Sukumar JOHNSTON R.N.
== END 2016-07-12 15:30 | disposition home or self-care (01) ==
LOC: D.OPS 05:31 → D.CT 08:00 → D.OPS 08:00
PROVIDERS: Specialist
DX: D64.9 Anemia, unspecified (principal)